=== PATIENT | female | born 1985 | race Caucasian/White ===

== ENCOUNTER 2016-11-11 01:17 | Emergency (ER) | payer OTHER ==
[~2016-11-11] VITALS: Ht 167.6 cm; Wt 93.5 kg
[~2016-11-11 01:17] MED LIST: NO CURRENT MEDS
[2016-11-11 01:33] VITALS: Ht 167.6 cm; Wt 93.5 kg
[2016-11-11] MEDS ORDERED: ONDANSETRON 4 MG INJ IV STA (01:55)
[2016-11-11] MEDS ORDERED: morphine 4 MG/ML VIAL IV STA (01:55)
[2016-11-11] MEDS ORDERED: SOD CHLORIDE 0.9% 1,000 ML IV STA (01:55)
--- NOTE | 2016-11-11 02:38 | ERD ---
ER Documentation Chief Complaint Date/Time DATE: 11/11/16 TIME: 02:35 Chief Complaint right lower back pain x 5days. +hematuria. riojas when urinates HPI 31-year-old female presents here in emergency department for complaints of right lower back pain hematuria dysuria for 5 days. Patient described the pain as sharp pain, 6/10 scale, accompanied with hematuria or dysuria. Patient also has been having heavy vaginal bleeding, has had it for the last 3 weeks, currently on control, saw OB specialist, was bleeding for almost 3 weeks. Patient states that she is bleeding but only small amounts now. Patient denies any fever or chills. She denies any nausea or vomiting. ROS All systems reviewed and are negative except as per history of present illness. Medications Home Meds Active Scripts Ondansetron (Ondansetron Odt) 4 Mg Tab.rapdis, 4 MG PO Q8 Y for NAUSEA AND/OR VOMITING, #30 TAB Prov:FLOWER HENDRIX NP 11/11/16 Ibuprofen* (Motrin*) 600 Mg Tab, 600 MG PO Q6H Y for PAIN AND OR ELEVATED TEMP, #30 TAB Prov:FLOWER HENDRIX [employer] [employer] [employer] 11/11/16 Phenazopyridine Hcl* (Pyridium*) 200 Mg Tab, 200 MG PO TID Y for URINARY PAIN, # 6 TAB Prov:FLOWER HENDRIX [employer] [employer] 11/11/16 Ciprofloxacin Hcl* (Ciprofloxacin Hcl*) 500 Mg Tablet, 500 MG PO BID for 10 Days , TAB Prov:FLOWER HENDRIX NP 11/11/16 Reported Medications [No Current Meds] No Conflict Check 03/08/10 Allergies Allergies: Coded Allergies: No Known Drug Allergies (Verified Allergy, Mild, 03/08/10) PMhx/Soc Medical and Surgical Hx: pt denies Medical Hx History of Surgery: Yes ( section) Anesthesia Reaction: No Hx Neurological Disorder: No Hx Respiratory Disorders: No Hx Cardiac Disorders: No Hx Psychiatric Problems: No Hx Miscellaneous Medical Probl: No Hx Alcohol Use: No Hx Substance Use: No Hx Tobacco Use: No Smoking Status: Never smoker FmHx Family History: No coronary disease, No diabetes, No other Physical Exam Vitals Vital Signs Date Time Temp Pulse Resp B/P Pulse Ox O2 Delivery O2 Flow Rate FiO2 11/11/16 05:40 97.9 79 20 99/54 100 Room Air 11/11/16 01:33 99.1 109 18 111/67 99 Physical Exam GENERAL: The patient is well developed and appropriate for usual state of health, in no apparent distress. CHEST: Clear to auscultation bilaterally. There are no rales, wheezes or rhonchi. HEART: Regular rate and rhythm. No murmurs, clicks, rubs or gallops. No S3 or S4. ABDOMEN: Soft, nontender and nondistended. Good bowel sounds. No rebound or guarding. No gross peritonitis. No gross organomegaly or masses. No Arias sign or McBurney point tenderness. BACK: No midline or flank tenderness. EXTREMITIES: Equal pulses bilaterally. There is no peripheral clubbing, cyanosis or edema. No focal swelling or erythema. Full range of motion. Grossly neurovascularly intact. NEURO: Alert and oriented. Cranial nerves 2-12 intact. Motor strength in all 4 extremities with 5/5 strength. Sensation grossly intact. Normal speech and gait. SKIN: There is no apparent rash or petechia. The skin is warm and dry. HEMATOLOGIC AND LYMPHATIC: There is no evidence of excessive bruising or lymphedema. No gross cervical, axillary, or inguinal lymphadenopathy. Result Diagram: 11/11/16 0235 11/11/16 0235 Results 24 hrs Laboratory Tests Test 11/11/16 02:35 White Blood Count 16.810^3/ul Red Blood Count 4.5410^6/ul Hemoglobin 10.1g/dl Hematocrit 32.9% Mean Corpuscular Volume 72.5fl Mean Corpuscular Hemoglobin 22.2pg Mean Corpuscular Hemoglobin Concent 30.7g/dl Red Cell Distribution Width 15.2% Platelet Count 60535^3/UL Mean Platelet Volume 10.5fl Neutrophils % 83.5% Lymphocytes % 9.1% Monocytes % 5.6% Eosinophils % 1.1% Basophils % 0.2% Nucleated Red Blood Cells % 0.0/100WBC Neutrophils # 14.010^3/ul Lymphocytes # 1.510^3/ul Monocytes # 1.010^3/ul Eosinophils # 0.210^3/ul Basophils # 0.010^3/ul Nucleated Red Blood Cells # 0.010^3/ul Urine Color LT. YELLOW Urine Clarity SLIGHTLY CLOUDY Urine pH 5.5 Urine Specific [place] 1.020 Urine Ketones NEGATIVE Urine Nitrite NEGATIVE Urine Bilirubin NEGATIVE Urine Urobilinogen 0.2 E.U./dL Urine Leukocyte Esterase 2+ Urine Microscopic RBC 5-10/HPF Urine Microscopic WBC >200/HPF Urine Squamous Epithelial Cells MODERATE Urine Bacteria FEW Urine Hemoglobin 3+ Urine Glucose NEGATIVE% Urine Total Protein 2+ Sodium Level 143mmol/L Potassium Level 3.8mmol/L Chloride Level 108mmol/L Carbon Dioxide Level 23mmol/L Anion Gap 16 Blood Urea Nitrogen 9mg/dl Creatinine 0.69mg/dl Glucose Level 102mg/dl Calcium Level 8.8mg/dl Total Bilirubin 0.3mg/dl Direct Bilirubin 0.00mg/dl Indirect Bilirubin 0.3mg/dl Aspartate Amino Transf (AST/SGOT) 23IU/L Alanine Aminotransferase (ALT/SGPT) 39IU/L Alkaline Phosphatase 104IU/L Total Protein 8.0g/dl Albumin 4.6g/dl Globulin 3.40g/dl Albumin/Globulin Ratio 1.35 Lipase 35U/L Current Medications Medications (Trade) Dose Ordered Sig/Renny Route PRN Reason Start Time Stop Time Status Last Admin Dose Admin Sodium Chloride (NS) 1,000 ml @ 1,000 mls/hr Q1H STAT IV 11/11/16 01:55 11/11/16 02:54 DC 11/11/16 02:37 Morphine Sulfate (morphine) 4 mg ONCE STAT IV 11/11/16 01:55 11/11/16 01:57 DC 11/11/16 02:38 Ondansetron HCl (Zofran Inj) 4 mg ONCE STAT IV 11/11/16 01:55 11/11/16 01:57 DC 11/11/16 02:37 Acetaminophen 650 mg 650 mg ONCE ONCE PO 11/11/16 03:00 11/11/16 03:01 DC Ceftriaxone Sodium (Rocephin) 50 ml @ 100 mls/hr ONCE ONCE IVPB 11/11/16 05:00 11/11/16 05:29 DC 11/11/16 05:03 Ketorolac Tromethamine (Toradol) 30 mg ONCE STAT IV 11/11/16 05:08 11/11/16 05:09 DC 11/11/16 05:32 Normal saline IV bolus was given here in emergency department for rehydration, patient tolerated IV fluids.Patient was given medication for pain here in emergency department, after treatment, patient verbalized feeling much better. Patient's pain is improved.Patient was given Zofran here in the emergency department. After treatment, patient was able to tolerate po fluids here in the emergency department without any vomiting. There is no signs and symptoms of dehydration. Patient was given medicines for fever control here in the emergency department. After treatment, patient temperature improved and lower. Patient appears well and is hemodynamically stable. PROCEDURE: CT ABDOMEN/PELVIS WITHOUT CONTRAST CLINICAL INDICATION: 31-year-old female with abdominal pain. TECHNIQUE: The study was performed utilizing a [employer] VCT 64-slice CT scanner. Direct axial sections were obtained through the abdomen and pelvis without the use of intravenous contrast material. Sagittal and coronal reformations were obtained. One or more of the following dose reduction techniques were utilized: automated exposure control, adjustment of the mA and/ or kV according to patient's size or use of iterative reconstruction technique. The images were reviewed on a PACS workstation. CTD/vol = 21.7 mGy; Total Exam DLP = 1283.9 mGy-cm. COMPARISON: None. FINDINGS: The lung bases are unremarkable. There is no evidence for significant pleural effusion. The liver has a normal size and contour. There is diffuse decreased density throughout the liver consistent with fatty infiltration. without focal areas of abnormal density. No intrahepatic nor extrahepatic biliary ductal dilatation is seen. The gallbladder demonstrates no wall thickening nor pericholecystic fluid. No biliary stones are evident. The pancreas is without areas of abnormal attenuation. The spleen is identified and has a normal size without abnormal density. The adrenal glands are unremarkable. There is an ovoid focus of increased density within the medial aspect of the right upper pole of the kidney measuring 12 x 10 x 10 mm suggestive of a hemorrhagic cyst. The left kidney is without abnormal density, calculi or obstruction. No hydroureteronephrosis nor nephroureterolithiasis is evident. The urinary bladder contains urine. There is mild retained stool within the ascending and transverse colon without obstruction. The appendix is visualized and is without abnormal thickening or surrounding inflammatory reaction. The uterus is anteflexed. There is a small right ovarian cyst identified measuring 1.5 x 1.2 x 1.1 cm. There is no significant free fluid. The aortoiliac vessels are without aneurysmal dilatation. The osseous structures are intact. IMPRESSION: 1. Diffuse fatty infiltration of the liver. 2. Probable right upper pole renal hemorrhagic cyst. 3. Mild retained stool within the proximal colon without obstruction. 4. No CT evidence for appendicitis. 5. Small right ovarian cyst. .Otoniel Vences MD, MD Date Time Electronically viewed and signed by .Otoniel Vences MD, MD on 11/11/2016 04:50 .M/ CC: FLOWER HENDRIX [facility] Procedures/MDM Medical Decision Making: Patient's symptoms is likely consistent with pyelonephritis. Outpatient management is appropriate at this time since patient appears well and is hemodynamically stable, no active vomiting, was given IV antibiotics here in emergency department. No symptoms of an infected stone. No symptoms of any hydronephrosis. There is low suspicion for abdominal emergencies at this time. Patients abdominal exam is normal at this time. Patients radiology exam does not show any abdominal emergencies at this time. There is low suspicion for appendicitis, cholecystitis, abdominal aortic aneurysms or peritonitis at this time. There is low suspicion for sepsis. Patient appears well and is hemodynamically stable. Disposition: Home. Condition: Stable Prescription ciprofloxacin, Pyridium, ibuprofen, Zofran Instructions: Patient is advised to take medications as prescribed. Patient is advised to rest, increase fluid intake and do brat diet for next 1-2 days and progress as tolerated, do good perineal hygiene. Patient is advised that if symptoms are worse, severe abdominal pain, uncontrolled vomiting, high fever, severe flank pain, worst signs and symptoms, to return to the emergency department immediately. Otherwise, patient can follow up with primary care doctor in 5-7 days. Departure Diagnosis: Primary Impression: Pyelonephritis Condition: Stable Patient Instructions: Pyelonephritis, Female (Adult) Additional Instructions: Patient is advised to take medications as prescribed. Patient is advised to rest , increase fluid intake and do brat diet for next 1-2 days and progress as tolerated, do good perineal hygiene. Patient is advised that if symptoms are worse, severe abdominal pain, uncontrolled vomiting, high fever, severe flank pain, worst signs and symptoms, to return to the emergency department immediately. Otherwise, patient can follow up with primary care doctor in 5-7 days. FLOWER HENDRIX. WENDI Nov 11, 2016 02:38
[2016-11-11 03:00] LABS: ADD SCAN DIFF NO
[2016-11-11] MEDS ORDERED: ACETAMINOPHEN 325 MG TAB PO ONE (03:00)
[2016-11-11 03:02] LABS: BASOPHILS % 0.2 % (0.0-2.0); EOSINOPHILS # 0.2 10^3/ul (0.0-0.5); EOSINOPHILS % 1.1 % (0.0-7.0); HEMATOCRIT 32.9 % (37.0-47.0); HEMOGLOBIN 10.1 g/dl (12.0-16.0); LYMPHOCYTES # 1.5 10^3/ul (0.8-2.9); LYMPHOCYTES % 9.1 % (15.0-51.0); MEAN CORPUSCULAR HEMOGLOBIN 22.2 pg (29.0-33.0); MEAN CORPUSCULAR HGB CONC 30.7 g/dl (32.0-37.0); MEAN CORPUSCULAR VOLUME 72.5 fl (82.0-101.0); MEAN PLATELET VOLUME 10.5 fl (7.4-10.4); MONOCYTES % 5.6 % (0.0-11.0); NEUTROPHILS % 83.5 % (39.0-77.0); PLATELET COUNT 428 10^3/UL (140-415); RED BLOOD COUNT 4.54 10^6/ul (4.20-5.40); RED CELL DISTRIBUTION WIDTH 15.2 % (11.5-14.5); WHITE BLOOD COUNT 16.8 10^3/ul (4.8-10.8)
[2016-11-11 03:15] LABS: ADD UMIC YES; URINE BILIRUBIN (Dip) NEGATIVE (NEGATIVE); URINE BLOOD (Dip) 3+ (NEGATIVE); URINE COLOR LT. YELLOW (YELLOW); URINE GLUCOSE (Dip) NEGATIVE (NEGATIVE); URINE KETONES (Dip) NEGATIVE (NEGATIVE); URINE LEUKOCYTE ESTERASE (Dip) 2+ (NEGATIVE); URINE NITRITE (Dip) NEGATIVE (NEGATIVE); URINE TOTAL PROTEIN (Dip) 2+ (NEGATIVE); URINE UROBILINOGEN (Dip) 0.2 E.U./dL (0.1-1.0)
[2016-11-11 03:26] LABS: BACTERIA,URINE FEW; SQUAMOUS EPITHELIAL CELL,UR MODERATE
[2016-11-11 03:27] LABS: ALBUMIN 4.6 g/dl (3.3-4.9); ALBUMIN/GLOBULIN RATIO 1.35; BILIRUBIN,INDIRECT 0.3 mg/dl (0-1.1); BILIRUBIN,TOTAL 0.3 mg/dl (0.2-1.3); CALCIUM 8.8 mg/dl (8.4-10.2); CREATININE 0.69 mg/dl (0.44-1.00); POTASSIUM 3.8 mmol/L (3.5-5.1)
--- NOTE | 2016-11-11 04:50 | RADRPT ---
PROCEDURE: CT ABDOMEN/PELVIS WITHOUT CONTRAST CLINICAL INDICATION: 31-year-old female with abdominal pain. TECHNIQUE: The study was performed utilizing a [employer] VCT 64-slice CT scanner. Direct axia l sections were obtained through the abdomen and pelvis without the use of intravenous contrast mate rial. Sagittal and coronal reformations were obtained. One or more of the following dose reduction t echniques were utilized: automated exposure control, adjustment of the mA and/or kV according to pat ient's size or use of iterative reconstruction technique. The images [place]. CTD/vol = 21.7 mGy; Total Exam DLP = 1283.9 mGy-cm. COMPARISON: None. FINDINGS: The lung bases are unremarkable. There is no evidence for significant pleural effusion. The liver has a normal size and contour. There is diffuse decreased density throughout the liver consistent w ith fatty infiltration. without focal areas of abnormal density. No intrahepatic nor extrahepatic bi liary ductal dilatation is seen. The gallbladder demonstrates no wall thickening nor pericholecystic fluid. No biliary stones are evident. The pancreas is without areas of abnormal attenuation. The s pleen is identified and has a normal size without abnormal density. The adrenal glands are unremarka ble. There is an ovoid focus of increased density within the medial aspect of the right upper pole o f the kidney measuring 12 x 10 x 10 mm suggestive of a hemorrhagic cyst. The left kidney is without abnormal density, calculi or obstruction. No hydroureteronephrosis nor nephroureterolithiasis is ev ident. The urinary bladder contains urine. There is mild retained stool within the ascending and transverse colon without obstruction. The appendix is visualized and is without abnormal thickening or surrounding inflammatory reaction. The uterus is anteflexed. There is a small right ovarian cyst identified measuring 1.5 x 1.2 x 1.1 cm. There is no significant free fluid. The aortoiliac vessel s are without aneurysmal dilatation. The osseous structures are intact. IMPRESSION: 1. Diffuse fatty infiltration of the liver. 2. Probable right upper pole renal hemorrhagic cyst. 3. Mild retained stool within the proximal colon without obstruction. 4. No CT evidence for appendicitis. 5. Small right ovarian cyst. .Otoniel Vences MD, MD Date Time Electronically viewed and signed by .Otoniel Vences MD, on 11/11/2016 04:50 .M/
[2016-11-11] MEDS ORDERED: IBUP-1542 PO (04:57)
[2016-11-11] MEDS ORDERED: PHEN-538 PO (04:57)
[2016-11-11] MEDS ORDERED: CIPR500T4 PO (04:57)
[2016-11-11] MEDS ORDERED: ONDA4TAB14 PO (04:57)
[2016-11-11] MEDS ORDERED: CEFTRIAXONE 1 GM/50 ML (PMX) 50 ML IVPB ONE (05:00)
[2016-11-11] MEDS ORDERED: KETOROLAC 30 MG INJ IV STA (05:08)
[2016-11-11 05:40] VITALS: BP 99/54; PULSE 79; RESP 20; TEMP 97.9
== END 2016-11-11 05:45 | disposition home or self-care (01) ==
LOC: FTE 01:17
DX: N12 Tubulo-interstitial nephritis, not specified as acute or chronic (principal)
CPT/HCPCS: 74176; 80053; 81001; 83690; 85025; 86850; 86900; 86901; J0696; J1885; J2270; J2405; J7030; 36415; 96374; 96375

== ENCOUNTER 2017-04-20 18:41 | Outpatient (CLI) | payer OTHER ==
[~2017-04-20] VITALS: Ht 154.9 cm; Wt 99.0 kg
[~2017-04-20 18:41] MED LIST changes: +CIPR500T4 PO; +IBUP-1542 PO; +ONDA4TAB14 PO; +PHEN-538 PO
[2017-04-20 19:05] VITALS: Ht 154.9 cm; Wt 99.0 kg
[2017-04-20 19:06] VITALS: BP 110/62; PULSE 123; RESP 36
[2017-04-20] MEDS ORDERED: LACTATED RINGER'S 1,000 ML IV ONE (19:30)
[2017-04-20] MEDS ORDERED: ACETAMINOPHEN 1000MG/100ML IV 100 ML IVPB ONE (19:30)
[2017-04-20 20:25] LABS: BASOPHILS % 0.1 % (0.0-2.0); EOSINOPHILS % 0.1 % (0.0-7.0); HEMATOCRIT 33.1 % (37.0-47.0); HEMOGLOBIN 10.8 g/dl (12.0-16.0); LYMPHOCYTES # 0.8 10^3/ul (0.8-2.9); LYMPHOCYTES % 5.4 % (15.0-51.0); MEAN CORPUSCULAR HEMOGLOBIN 25.2 pg (29.0-33.0); MEAN CORPUSCULAR HGB CONC 32.6 g/dl (32.0-37.0); MEAN CORPUSCULAR VOLUME 77.3 fl (82.0-101.0); MEAN PLATELET VOLUME 10.6 fl (7.4-10.4); MONOCYTE # 0.7 10^3/ul (0.3-0.9); MONOCYTES % 4.7 % (0.0-11.0); NEUTROPHIL # 12.7 10^3/ul (1.6-7.5); NEUTROPHILS % 88.9 % (39.0-77.0); PLATELET COUNT 286 10^3/UL (140-415); RED BLOOD COUNT 4.28 10^6/ul (4.20-5.40); RED CELL DISTRIBUTION WIDTH 17.7 % (11.5-14.5); WHITE BLOOD COUNT 14.3 10^3/ul (4.8-10.8)
[2017-04-20 20:44] LABS: ALBUMIN 3.9 g/dl (3.3-4.9); ALBUMIN/GLOBULIN RATIO 0.97; BILIRUBIN,INDIRECT 0.2 mg/dl (0-1.1); BILIRUBIN,TOTAL 0.2 mg/dl (0.2-1.3); CALCIUM 8.9 mg/dl (8.4-10.2); CREATININE 0.55 mg/dl (0.44-1.00); POTASSIUM 3.7 mmol/L (3.5-5.1); TOTAL PROTEIN 7.9 g/dl (6.1-8.1)
[2017-04-20 21:57] LABS: ADD UMIC YES; UR ASCORBIC ACID NEGATIVE (NEGATIVE); UR BILIRUBIN (Dip) NEGATIVE (NEGATIVE); UR BLOOD (Dip) 3+ mg/dL (NEGATIVE); UR CLARITY CLEAR (CLEAR); UR COLOR YELLOW (YELLOW); UR GLUCOSE (Dip) NEGATIVE (NEGATIVE); UR KETONES (Dip) 2+ mg/dL (NEGATIVE); UR LEUKOCYTE ESTERASE (Dip) NEGATIVE Leu/ul (NEGATIVE); UR MUCUS FEW /HPF (NONE SEEN); UR NITRITE (Dip) NEGATIVE (NEGATIVE); UR RBC 32 /HPF (0-5); UR SPECIFIC GRAVITY (Dip) 1.014 (1.003-1.030); UR SQUAMOUS EPITHELIAL CELL FEW /HPF (FEW); UR TOTAL PROTEIN (Dip) 1+ mg/dl (NEGATIVE); UR UROBILINOGEN (Dip) NEGATIVE (NEGATIVE)
[2017-04-20] MEDS ORDERED: PNV1TABL71 PO (23:31)
--- NOTE | 2017-04-20 23:56 | PN ---
Triage Information Date/Time Apr 20, 2017 Reason for visit: Fever, body aches. Weeks of Gestation 20w 3d /Para 3/1 Diabetes: none Hypertention: none Additional information Pt reports sx's since 04/20 at 0700. No flank pain, dysuria, hematuria, nausea, vomiting, diarrhea. PMHx: none. PSHx: x 1. NKDA. Objective Vital Signs Date Time Temp Pulse Resp B/P Pulse Ox O2 Delivery O2 Flow Rate FiO2 04/20/17 19:06 100.4 123 36 110/62 99 Room Air Heart Rate: 150's (and over.) Contractions: None Exam No CVAT. VE: Deferred. Results/Medications Result Diagram: 04/20/17199904/20/171999 Results 24 hrs Laboratory Tests Test 04/20/17 20:00 04/20/17 20:56 White Blood Count 14.3 H Red Blood Count 4.28 Hemoglobin 10.8 L Hematocrit 33.1 L Mean Corpuscular Volume 77.3 L Mean Corpuscular Hemoglobin 25.2 L Mean Corpuscular Hemoglobin Concent 32.6 Red Cell Distribution Width 17.7 H Platelet Count 286 # Mean Platelet Volume 10.6 H Neutrophils % 88.9 H Lymphocytes % 5.4 L Monocytes % 4.7 Eosinophils % 0.1 Basophils % 0.1 Nucleated Red Blood Cells % 0.0 Neutrophils # 12.7 H Lymphocytes # 0.8 Monocytes # 0.7 Eosinophils # 0.0 Basophils # 0.0 Nucleated Red Blood Cells # 0.0 Sodium Level 136 Potassium Level 3.7 Chloride Level 103 Carbon Dioxide Level 20 L Anion Gap 17 H Blood Urea Nitrogen 3 L Creatinine 0.55 Glucose Level 92 Calcium Level 8.9 Total Bilirubin 0.2 Direct Bilirubin 0.00 Indirect Bilirubin 0.2 Aspartate Amino Transf (AST/SGOT) 23 Alanine Aminotransferase (ALT/SGPT) 36 Alkaline Phosphatase 113 Total Protein 7.9 Albumin 3.9 Globulin 4.00 H Albumin/Globulin Ratio 0.97 Urine Color YELLOW Urine Clarity CLEAR Urine pH 7.0 Urine Specific [place] 1.014 Urine Ketones 2+ H Urine Nitrite NEGATIVE Urine Bilirubin NEGATIVE Urine Urobilinogen NEGATIVE Urine Leukocyte Esterase NEGATIVE Urine Microscopic RBC 32 H Urine Microscopic WBC 2 Urine Squamous Epithelial Cells FEW Urine Mucus FEW A Urine Hemoglobin 3+ H Urine Glucose NEGATIVE Urine Total Protein 1+ H Medications One gram Tylenol IV. Disposition: Discharge Assessment/Plan A: IUP at 20w 3d. Viral syndrome with fever, body aches. P: IV hydration. One gram Tylenol IV. CBC wnl with WBC 14.3 and a Hgb of 10.8. CMP was normal; U/A negative except for a little blood. Pt felt much better by the time of d/c with the SOB, fever, and aches gone. Urine cx pending so pt told to tell her clinic to [facility] to get the results by Friday. ANTHONY MURRAY MD Apr 20, 2017 23:55
--- NOTE | 2017-04-21 00:56 | TRIAGE ---
OB Triage Datetime Report Generated by CPN: 04/21/2017 00:56 Datetime: 04/20/2017 23:00 Stage of : OB Triage Labor Evaluation Frequency: 0 Monitor Mode: External Datetime: 04/20/2017 22:00 Stage of : OB Triage Labor Evaluation Frequency: 0 Monitor Mode: External Datetime: 04/20/2017 21:00 Labor Evaluation Frequency: 0 Monitor Mode: External Datetime: 04/20/2017 20:00 Labor Evaluation Frequency: 0 Monitor Mode: External Datetime: 04/20/2017 18:57 Time of Arrival: 04/20/2017 18:35 EGA: 20.3 Arrived By: Wheelchair Arrived From: Home Chief Complaint: FEVER,SOB,BODY ACHES Contractions: Denies/Absent Vaginal Bleeding: None Patient Complaints: Fever; Shortness of Breath Time Provider Notified: 04/20/2017 19:15 Provider Notified: DR MURRAY Initial Plan: CALL LABORIST Datetime: 04/20/2017 18:56 Maternal Assessment Level of Consciousness: Fully Conscious DTR's/Clonus: DTRs 2+; No Clonus Blurred Vision: No Breath Sounds, Left: Clear and Equal Breath Sounds, Right: Clear and Equal Nausea/Vomiting: Denies RUQ Epigastric Pain: Denies Facial Edema: None Fall Risk Assessment History of Falling: (0) No Secondary Diagnosis: (0) No Ambulatory Aid: (0) Bedrest/Nurse Assist IV Therapy: (0) No Gait: (0) Normal/Bedrest/Immobile Mental Status: (0) Oriented to Own Ability Fall Score: 0 Fall Risk Score Definition: No Risk: No action required Datetime: 04/20/2017 18:52 Maternal Assessment Level of Consciousness: Fully Conscious DTR's/Clonus: DTRs 2+ Headache: Generalized Blurred Vision: No Nausea/Vomiting: Denies RUQ Epigastric Pain: Denies Facial Edema: None Labor Evaluation Frequency: NONE Heart Rate FHR Baseline Rate: 185 Pain Assessment Pain Scale: 10 Pain Presence: Constant Pain Type: Ache Pain Location: Head Vaginal Exam Membrane Status: Intact
== END 2017-04-20 23:44 | disposition home or self-care (01) ==
LOC: OBT 18:41 → L-D 18:42 → OBT 23:44
DX: O98.512 Other viral diseases complicating pregnancy, second trimester (principal); B34.9 Viral infection, unspecified; O26.892 Other specified pregnancy related conditions, second trimester; M79.1 Myalgia; R50.9 Fever, unspecified; Z3A.20 20 weeks gestation of pregnancy
CPT/HCPCS: 36415; 80053; 81001; 85025; 87040; 87086; 96360; 96361; G0463; J0131; J7120